=== PATIENT | male | born 1980 | race American Indian/Alaskan Native ===

== ENCOUNTER 2019-06-30 22:49 | Emergency (ER) | payer SELFPAY ==
--- NOTE | 2019-06-30 23:42 | Emergency Department Report ---
ED General Adult HPI - General Chief complaint: Headache Stated complaint: HEADACHE/SULEMAN/LEFT SIDE NUMB Time Seen by Provider: 06/30/19 23:29 Source: patient Mode of arrival: Ambulatory Limitations: No Limitations - History of Present Illness Initial comments: 39-year-old male presents to ED with complaint of headache, shortness of breath, numbness and tingling in hands, chest tightness. Patient reports onset approximately 2 hours ago. Patient denies fever, cough, or exposure to anyone who has tested positive for COVID-19. Patient states his symptoms have currently resolved, and declines any further testing. Patient believes his symptoms are due to anxiety. States he used to have bad anxiety attacks 10 years ago. Patient denies drug use. -: hour(s) (2) Location: head, chest, left, upper extremity Quality: aching Consistency: now resolved Improves with: none Worsens with: none Associated Symptoms: chest pain, headaches, shortness of breath. denies: cough, fever/chills, nausea/vomiting - Related Data Allergies Allergy/AdvReac Type Severity Reaction Status Date / Time peanut Allergy Hives Verified 06/30/19 23:20 ED Review of Systems ROS: Stated complaint: HEADACHE/SULEMAN/LEFT SIDE NUMB Other details as noted in HPI Comment: All other systems reviewed and negative Constitutional: denies: chills, fever Respiratory: shortness of breath. denies: cough Cardiovascular: chest pain Gastrointestinal: nausea. denies: vomiting Neurological: headache, paresthesias Psychiatric: anxiety ED Past Medical Hx - Past Medical History Previous Medical History?: Yes Additional medical history: high cholestrol No meds - Surgical History Past Surgical History?: No - Social History Smoking Status: Current Every Day Smoker Substance Use Type: Alcohol ED Physical Exam - General Limitations: No Limitations General appearance: alert, in no apparent distress - Head Head exam: Present: atraumatic, normocephalic - Eye Eye exam: Present: normal appearance, EOMI - ENT ENT exam: Present: mucous membranes moist - Neck Neck exam: Present: normal inspection - Respiratory Respiratory exam: Present: normal lung sounds bilaterally. Absent: respiratory distress - Cardiovascular Cardiovascular Exam: Present: regular rate, normal rhythm - GI/Abdominal GI/Abdominal exam: Present: soft. Absent: distended, tenderness - Extremities Exam Extremities exam: Present: normal inspection - Neurological Exam Neurological exam: Present: alert, oriented X3, CN II-XII intact. Absent: motor sensory deficit - Psychiatric Psychiatric exam: Present: normal affect, normal mood - Skin Skin exam: Present: warm, dry, intact, normal color. Absent: rash ED Course Vital Signs 06/30/19 23:11 Temperature 98.1 F Pulse Rate 70 Respiratory 18 Rate Blood Pressure 125/89 O2 Sat by Pulse 99 Oximetry ED Medical Decision Making - EKG Data -: EKG Interpreted by Me EKG shows normal: sinus rhythm, axis, intervals, QRS complexes, ST-T waves Rate: normal - EKG Data Interpretation: no acute changes - Medical Decision Making Despite our efforts, Mr Caballero has decided to leave against medical advice. He has a normal mental status and full decisional capacity. The patient under stands his condition (chest pain, shortness of breath, headache) and the risks of leaving AMA, including but not limited to permanent disability, , and has had an opportunity to ask questions about his medical condition. The patient has been informed that he may return for care at any time, and has been advised to obtain outpatient follow-up. - Differential Diagnosis ACS, anxiety, pneumonia, PE Critical care attestation.: If time is entered above; I have spent that time in minutes in the direct care of this critically ill patient, excluding procedure time. ED Disposition Clinical Impression: Headache, Chest pain, Shortness of breath Disposition: -07 LEFT AGAINST MED ADVICE Is pt being admited?: No Condition: Stable Instructions: Chest Pain (ED), Anxiety (ED) Referrals: [facility] [Provider Group] - 3-5 Days Forms: AMA Form Time of Disposition: 23:43
[2019-06-30 23:58] VITALS: BP 125/89
== END 2019-06-30 23:37 | disposition left against medical advice (07) ==
LOC: ED 22:49
DX: R51 Headache (principal); R06.02 Shortness of breath; R07.89 Other chest pain; E78.00 Pure hypercholesterolemia, unspecified; F17.200 Nicotine dependence, unspecified, uncomplicated; Z91.010 Allergy to peanuts
CPT/HCPCS: 93005; 99283

== ENCOUNTER 2020-03-07 00:20 | Emergency (ER) | payer SELFPAY ==
[2020-03-07 00:29] VITALS: BP 137/93
--- NOTE | 2020-03-07 00:46 | Emergency Department Report ---
- General Chief Complaint: Chest Pain Stated Complaint: COVD SYMPTOMS Source: patient Mode of arrival: Ambulatory Limitations: No Limitations - History of Present Illness Initial Comments: 40-year-old male with multiple complaining of cough congestion coryza suspicion of a viral illness like COVID-19. Symptoms have not worsened over the last 2 days been present for the last 3 to 4 days. Reports no treatment now no significant past medical history MD Complaint: cough, sore throat, nasal congestion -: days(s) (3) Severity: moderate Quality: dull Consistency: constant Improves With: nothing Worsens With: nothing Associated Symptoms: myalgias, rhinorrhea, nasal congestion, cough, chest pain Treatments Prior to Arrival: none - Related Data Previous Rx's Medication Instructions Recorded Last Taken Type Albuterol Mdi (or & Nicu Only) 1 puff IH Q4-6H PRN #1 inha 03/07/20 Unknown Rx [ProAir HFA Inhaler] Benzonatate [Tessalon Perles] 100 mg PO Q8HR #20 capsule 03/07/20 Unknown Rx predniSONE [Deltasone] 50 mg PO QDAY #5 tab 03/07/20 Unknown Rx Allergies Allergy/AdvReac Type Severity Reaction Status Date / Time peanut Allergy Hives Verified 06/30/19 23:20 ED Review of Systems ROS: Stated complaint: COVD SYMPTOMS Other details as noted in HPI Comment: All other systems reviewed and negative Constitutional: no symptoms reported Eyes: denies: eye pain, eye discharge, vision change ENT: denies: ear pain, throat pain Respiratory: denies: cough, shortness of breath, wheezing Cardiovascular: denies: chest pain, palpitations Endocrine: no symptoms reported Gastrointestinal: denies: abdominal pain, nausea, diarrhea Genitourinary: denies: urgency, dysuria Musculoskeletal: denies: back pain, joint swelling, arthralgia Skin: denies: rash, lesions Neurological: denies: headache, weakness, paresthesias Psychiatric: denies: anxiety, depression Hematological/Lymphatic: denies: easy bleeding, easy bruising ED Past Medical Hx - Past Medical History Previous Medical History?: Yes Additional medical history: high cholestrol No meds - Surgical History Past Surgical History?: No - Social History Smoking Status: Current Every Day Smoker Substance Use Type: None - Medications Home Medications: Home Medications Medication Instructions Recorded Confirmed Last Taken Type Albuterol Mdi (or & Nicu Only) 1 puff IH Q4-6H PRN #1 inha 03/07/20 Unknown Rx [ProAir HFA Inhaler] Benzonatate [Tessalon Perles] 100 mg PO Q8HR #20 capsule 03/07/20 Unknown Rx predniSONE [Deltasone] 50 mg PO QDAY #5 tab 03/07/20 Unknown Rx ED Physical Exam - General Limitations: No Limitations General appearance: alert, in no apparent distress - Head Head exam: Present: atraumatic, normocephalic - Eye Eye exam: Present: normal appearance, PERRL Pupils: Present: normal accommodation - ENT ENT exam: Present: normal exam, mucous membranes moist, TM's normal bilaterally, other. Absent: normal orophraynx - Neck Neck exam: Present: normal inspection, full ROM. Absent: meningismus - Respiratory Respiratory exam: Present: normal lung sounds bilaterally. Absent: respiratory distress - Cardiovascular Cardiovascular Exam: Present: regular rate, normal rhythm. Absent: systolic murmur, diastolic murmur, rubs, gallop - GI/Abdominal GI/Abdominal exam: Present: soft, normal bowel sounds - Rectal Rectal exam: Present: deferred - Extremities Exam Extremities exam: Present: normal inspection - Back Exam Back exam: Present: normal inspection - Neurological Exam Neurological exam: Present: alert, oriented X3 - Psychiatric Psychiatric exam: Present: normal affect, normal mood - Skin Skin exam: Present: warm, dry, intact, normal color. Absent: rash ED Course Vital Signs 03/07/20 00:26 Temperature 97.6 F Pulse Rate 60 Respiratory 18 Rate Blood Pressure 137/93 O2 Sat by Pulse 100 Oximetry Critical care attestation.: If time is entered above; I have spent that time in minutes in the direct care of this critically ill patient, excluding procedure time. ED Disposition Clinical Impression: Cough, Viral syndrome Disposition: - TO HOME OR SELFCARE Is pt being admited?: No Does the pt Need Aspirin: No Condition: Stable Instructions: Cool Mist Vaporizer, Cough, Adult, [id number], Cough, Adult, Hand Washing, COVID-19 Frequently Asked Questions, COVID-19, COVID-19: How to Protect Yourself and Others - CDC, COVID-19, Prevent the Spread of COVID-19 if You Are Sick - [facility] Prescriptions: predniSONE [Deltasone] 50 mg PO QDAY #5 tab Albuterol Mdi (or & Nicu Only) [ProAir HFA Inhaler] 1 puff IH Q4-6H PRN #1 inha PRN Reason: Cough Benzonatate [Tessalon Perles] 100 mg PO Q8HR #20 capsule Referrals: PRIMARY CARE, [Primary Care Provider] - 3-5 Days [facility] [Provider Group] - 3-5 Days
--- NOTE | 2020-03-07 01:09 | XRay Report ---
CHEST 1 VIEW INDICATION / CLINICAL INFORMATION: chestpain. COMPARISON: None available. FINDINGS: SUPPORT DEVICES: None. HEART / MEDIASTINUM: No significant abnormality. LUNGS / PLEURA: No significant pulmonary or pleural abnormality. No pneumothorax. ADDITIONAL FINDINGS: No significant additional findings. IMPRESSION: 1. No acute findings. Signer Name: Dora Alex MD Signed: 03/07/2020 1:04 AM Workstation Name: [id number]
== END 2020-03-07 01:45 | disposition home or self-care (01) ==
LOC: ED 00:20
DX: B34.9 Viral infection, unspecified (principal); R05 Cough; E78.00 Pure hypercholesterolemia, unspecified; F17.200 Nicotine dependence, unspecified, uncomplicated; Z91.010 Allergy to peanuts; Z79.899 Other long term (current) drug therapy
CPT/HCPCS: 71045; 93005

== ENCOUNTER 2020-04-08 15:56 | Emergency (ER) | payer SELFPAY ==
--- NOTE | 2020-04-08 16:03 | Event Note ---
ED Screening Note Date of service: 04/08/20 Time: 16:02 ED Screening Note: Patient presents the ER with a sudden onset of shortness of breath. Vitals are stable in triage. Lungs are clear. No acute distress. This initial assessment/diagnostic orders/clinical plan/treatment(s) is/are subject to change based on patients health status, clinical progression and re- assessment by fellow clinical providers in the ED. Further treatment and workup at subsequent clinical providers discretion. Patient/guardian urged not to elope from the ED as their condition may be serious if not clinically assessed and managed. Initial orders include: CBC, CMP, PT/INR, troponin, EKG, chest x-ray
[2020-04-08 16:06] VITALS: BP 111/67
[2020-04-08 16:28] LABS: Basophils # (Auto) 0.1 K/mm3 (0.0-0.1); Basophils % (Auto) 0.7 % (0.0-1.8); Eosinophils % (Auto) 0.6 % (0.0-4.3); Hematocrit 50.7 % (35.5-45.6); Hemoglobin 17.5 gm/dl (11.8-15.2); Lymphocytes # (Auto) 3.3 K/mm3 (1.2-5.4); Lymphocytes % (Auto) 38.9 % (13.4-35.0); Mean Corpuscular HGB Conc 35 % (32-34); Mean Corpuscular Volume 92 fl (84-94); Monocytes # (Auto) 0.9 K/mm3 (0.0-0.8); Monocytes % (Auto) 10.7 % (0.0-7.3); Platelet Count 181 K/mm3 (140-440); Red Blood Count 5.51 M/mm3 (3.65-5.03)
--- NOTE | 2020-04-08 16:35 | XRay Report ---
XR chest routine 2V INDICATION / CLINICAL INFORMATION: shortness of breath. COMPARISON: 03/07/2020 FINDINGS: SUPPORT DEVICES: None. HEART /PULMONARY VASCULATURE: No significant abnormality. LUNGS / PLEURA: No significant pulmonary or pleural abnormality. No pneumothorax. ADDITIONAL FINDINGS: No significant additional findings. IMPRESSION: 1. No acute findings. Signer Name: Tobin Yung MD Signed: 04/08/2020 4:31 PM Workstation Name: [id number]
[2020-04-08 16:40] LABS: INR 0.93 (0.87-1.13)
[2020-04-08 16:41] LABS: Partial Thromboplastin Time 31.7 Sec. (24.2-36.6)
[2020-04-08 16:42] LABS: Alanine Aminotransferase 57 units/L (7-56); Albumin 4.2 g/dL (3.9-5); BUN/Creatinine Ratio 15; Blood Urea Nitrogen 17 mg/dL (9-20); Calcium 9.9 mg/dL (8.4-10.2); Hemolysis Index 17
== END 2020-04-08 18:13 | disposition left against medical advice (07) ==
LOC: ED 15:56
DX: R06.02 Shortness of breath (principal); Z53.21 Procedure and treatment not carried out due to patient leaving prior to being seen by health care provider
CPT/HCPCS: 36415; 71046; 80053; 84484; 85025; 85610; 85730; 99281